=== PATIENT | male | born 1985 | race African-American/Black ===

== ENCOUNTER 2025-05-12 09:17 | Emergency (ER) | payer OTHER ==
[~2025-05-12] VITALS: Ht 180.3 cm; Wt 94.3 kg
[2025-05-12] MEDS ORDERED: AMOCLA875 PO (12:27)
[2025-05-12] MEDS ORDERED: BACITRACIN ZIN1 EAC1 TOP (12:27)
[2025-05-12] MEDS ORDERED: Percocet 5-3251 EACH PO (12:27)
== END 2025-05-12 13:19 | disposition home or self-care (01) ==
LOC: ER 09:17
DX: S68.123A Partial traumatic metacarpophalangeal amputation of left middle finger, initial encounter (principal); W22.8XXA Striking against or struck by other objects, initial encounter; F17.290 Nicotine dependence, other tobacco product, uncomplicated
CPT/HCPCS: 12001; 73140; 90471; 90715; 99282-25; A9270